=== PATIENT | female | born 1930 | race African-American/Black ===

== ENCOUNTER 2019-03-20 21:59 | Inpatient (IN) | payer OTHER, MEDICAID ==
[~2019-03-20] VITALS: Ht 157.5 cm; Wt 47.9 kg
[~2019-03-20 21:59] MED LIST: ALLO100T MT; ASPI-1393 MT; ATOR-2 MT; CARV3.1242 PO; CLOP75TA33 MT; LOSA100T32 MT
[2019-03-20] MEDS ORDERED: SODIUM CHLORIDE 0.9% 1,000 ML IV ONE (23:13)
[2019-03-20] MEDS ORDERED: LEVETIRACETAM 500MG PREMIX 100 ML IV ONE (23:15)
[2019-03-20 23:33] LABS: BASOPHILS % 1.2 % (0.0-2.0); EOSINOPHILS % 5.4 % (0.0-5.0); HEMATOCRIT. 29.6 % (36.0-48.0); HEMOGLOBIN. 9.4 g/dL (12.0-16.0); LYMPHOCYTES % 14.9 % (20.0-50.0); MEAN CORPUSCULAR HEMOGLOBIN 29.8 pg (28.0-32.0); MEAN CORPUSCULAR VOLUME 93.9 fL (81.0-99.0); MEAN PLATELET VOLUME 11.7 fl (7.4-10.4); MONOCYTES % 10.2 % (2.0-8.0); NEUTROPHILS % 68.3 % (40.0-76.0); PLATELET 164 x1000/uL (130-400); RED BLOOD CELL COUNT 3.15 mill/uL (4.2-5.4); RED CELL DISTRIBUTION WIDTH 18.1 % (11.6-14.6)
[2019-03-20 23:38] LABS: CHLORIDE 118 mEq/L (98-107)
[2019-03-21 01:56] LABS: CLARITY URINE TURBID (CLEAR); COLOR URINE YELLOW (YELLOW); KETONES URINE NEGATIVE (NEGATIVE); LEUKOCYTE ESTERASE URINE 3+ (NEGATIVE); NITRITE URINE NEGATIVE (NEGATIVE); OCCULT BLOOD URINE 3+ (NEGATIVE); PROTEIN URINE 2+ (NEGATIVE); SPECIFIC GRAVITY URINE 1.011 (1.005-1.030); UROBILINOGEN URINE 0.2 E.U./dL (0.2-1.0)
[2019-03-21 09:02] VITALS: BP 149/56
[2019-03-21 11:00] VITALS: BP 149/56
[2019-03-21 12:00] VITALS: BP 143/55
[2019-03-21] MEDS: LEVETIRACETAM 500MG TABLET PO SCH ×2 (13:55→22:47)
[2019-03-21] MEDS: ACETAMINOPHEN 650MG/20.3ML UDC PO PRN (13:55)
[2019-03-21 16:00] VITALS: BP 142/57
[2019-03-21] MEDS: LOSARTAN POTASSIUM 100 MG TABLET PO SCH (17:18)
[2019-03-21] MEDS: CLOPIDOGREL 75MG TABLET PO SCH (17:18)
[2019-03-21] MEDS: ASPIRIN 81MG EC TABLET PO SCH (17:18)
[2019-03-21] MEDS: CEPHALEXIN 250MG CAPSULE PO SCH (18:12)
[2019-03-21 20:00] VITALS: BP 157/68
[2019-03-21] MEDS ORDERED: ATORVASTATIN CALCIUM 40MG TABLET PO SCH (21:00)
[2019-03-21] MEDS: CARVEDILOL 3.125 MG TABLET PO SCH (22:47)
[2019-03-22] VITALS: BP 122/71
[2019-03-22] MEDS: CEPHALEXIN 250MG CAPSULE PO SCH ×3 (00:45→12:12)
[2019-03-22] MEDS: ACETAMINOPHEN 650MG/20.3ML UDC PO PRN ×2 (00:46→07:50)
[2019-03-22 04:00] VITALS: BP 157/65
[2019-03-22 08:00] VITALS: BP 186/89
[2019-03-22] MEDS ORDERED: ALLOPURINOL 100 MG TABLET PO SCH (09:00)
[2019-03-22] MEDS: LEVETIRACETAM 500MG TABLET PO SCH (09:01)
[2019-03-22] MEDS: CLOPIDOGREL 75MG TABLET PO SCH (09:01)
[2019-03-22] MEDS: ASPIRIN 81MG EC TABLET PO SCH (09:02)
[2019-03-22] MEDS: LOSARTAN POTASSIUM 100 MG TABLET PO SCH (09:02)
[2019-03-22] MEDS: CARVEDILOL 3.125 MG TABLET PO SCH (09:02)
[2019-03-22 12:00] VITALS: BP 184/76
[2019-03-22 12:20] VITALS: BP 184/76
== END 2019-03-22 14:40 | disposition home health service (06) | DRG 101 ==
LOC: ER 21:59 → EDBEDREQ 23:16 → OBSVTOIN 03-21 03:07 → INTOOBSV 03-21 03:07 → 5WST 03-21 03:07 → EDBEDREQ 03-21 03:16 → EDBEDREQDT 03-21 03:16 → EDBEDREQTM 03-21 03:16 → ENRESERV 03-21 07:25
PROVIDERS: ADMIT Ophthalmology; ATTEND Ophthalmology
DX: R56.9 Unspecified convulsions (principal); N39.0 Urinary tract infection, site not specified; F03.90 Unspecified dementia, unspecified severity, without behavioral disturbance, psychotic disturbance, mood disturbance, and anxiety; E78.5 Hyperlipidemia, unspecified; I25.10 Atherosclerotic heart disease of native coronary artery without angina pectoris; N18.9 Chronic kidney disease, unspecified; M10.9 Gout, unspecified; I12.9 Hypertensive chronic kidney disease with stage 1 through stage 4 chronic kidney disease, or unspecified chronic kidney disease; E11.22 Type 2 diabetes mellitus with diabetic chronic kidney disease; I25.2 Old myocardial infarction; Z87.440 Personal history of urinary (tract) infections; Z86.73 Personal history of transient ischemic attack (TIA), and cerebral infarction without residual deficits; Z79.02 Long term (current) use of antithrombotics/antiplatelets; Z79.82 Long term (current) use of aspirin; Z79.899 Other long term (current) drug therapy
CPT/HCPCS: 36415; 71045; 81003; 83605; 84484; 87077; 87186; 93005; 96365; 99285; A6261; J1953; J7030

== ENCOUNTER 2019-12-20 09:51 | Inpatient (IN) | payer OTHER, MEDICAID ==
[~2019-12-20] VITALS: Ht 154.9 cm; Wt 50.8 kg
[~2019-12-20 09:51] MED LIST changes: -ASPI-1393 MT; +ASPI-1497 MT
[2019-12-20] MEDS ORDERED: SODIUM CHLORIDE 0.9% 1,000 ML IV ONE (10:04)
[2019-12-20] MEDS ORDERED: LORAZEPAM 2MG/ML CPJ IV ONE (10:15)
[2019-12-20] MEDS ORDERED: LEVETIRACETAM 1000MG/100ML 100 ML IV ONE (10:15)
[2019-12-20] MEDS ORDERED: LORAZEPAM 2MG/ML CPJ ONE (10:21)
[2019-12-20 10:35] LABS: BASOPHILS % 0.6 % (0.0-2.0); EOSINOPHILS % 6.7 % (0.0-5.0); HEMATOCRIT. 31.7 % (36.0-48.0); HEMOGLOBIN. 10.3 g/dL (12.0-16.0); MEAN CORPUSCULAR HEMOGLOBIN 30.6 pg (28.0-32.0); MEAN PLATELET VOLUME 11.1 fl (7.4-10.4); MONOCYTES % 10.7 % (2.0-8.0); PLATELET 171 x1000/uL (130-400); RED BLOOD CELL COUNT 3.37 mill/uL (4.2-5.4); RED CELL DISTRIBUTION WIDTH 18.4 % (11.6-14.6)
[2019-12-20 10:39] LABS: CHLORIDE 116 mEq/L (98-107)
[2019-12-20 10:42] LABS: INR 1.1; PROTHROMBIN TIME 11.4 sec (9.6-11.0)
[2019-12-20 11:54] LABS: CLARITY URINE TURBID (CLEAR); COLOR URINE RED (YELLOW); KETONES URINE NEGATIVE (NEGATIVE); LEUKOCYTE ESTERASE URINE 3+ (NEGATIVE); NITRITE URINE NEGATIVE (NEGATIVE); OCCULT BLOOD URINE 3+ (NEGATIVE); PROTEIN URINE 3+ (NEGATIVE); SPECIFIC GRAVITY URINE 1.013 (1.005-1.030); UROBILINOGEN URINE 0.2 E.U./dL (0.2-1.0)
[2019-12-20] MEDS ORDERED: DEXTROSE 50% WATER 50ML SYRINGE IV ONE (13:00)
[2019-12-20] MEDS ORDERED: INSULIN REGULAR (HUMULIN R) 300UNITS/3ML IV ONE (13:00)
[2019-12-20] MEDS ORDERED: CEFTRIAXONE 1 G PREMIX 50 ML IV ONE (13:00)
[2019-12-20] MEDS ORDERED: CLONIDINE 0.1MG TABLET PO PRN (18:30)
[2019-12-20] MEDS ORDERED: IPRATROPIUM/ALBUTEROL 0.5-3(2.5)MG/3ML NEB NEB PRN (18:30)
[2019-12-20] MEDS ORDERED: ONDANSETRON HCL 4MG/2ML INJ IV PRN (18:30)
[2019-12-20] MEDS ORDERED: NA PHOS,M-B/NA PHOS,DI-BA ENEMA 118ML PR PRN (18:30)
[2019-12-20] MEDS: FAMOTIDINE 20MG/2ML VIAL IV SCH (18:30)
[2019-12-20] MEDS ORDERED: GUAIFENESIN 200MG/10ML SUGAR FREE UDC PO PRN (18:30)
[2019-12-20] MEDS ORDERED: MAGNESIUM/ALUMINUM HYDROXIDE/SIMETHICONE 30ML UDC PO PRN (18:30)
[2019-12-20] MEDS ORDERED: DEXTROSE 50% WATER 50ML SYRINGE IV PRN (18:30)
[2019-12-20] MEDS ORDERED: DIPHENHYDRAMINE 50MG/ML VIAL IV PRN (18:30)
[2019-12-20] MEDS ORDERED: DOCUSATE SODIUM 100MG CAPSULE PO PRN (18:30)
[2019-12-20] MEDS ORDERED: ACETAMINOPHEN 650MG SUPP PR PRN (18:30)
[2019-12-20] MEDS ORDERED: LEVETIRACETAM 500 MG in SODIUM CHLORIDE 0.9% 100 ML IV SCH (18:30)
[2019-12-20] MEDS ORDERED: LORAZEPAM 0.5MG TABLET PO PRN (18:30)
[2019-12-20] MEDS ORDERED: HYDROCODONE/ACETAMINOPHEN 5/325MG TABLET PO PRN (18:30)
[2019-12-20] MEDS ORDERED: ACETAMINOPHEN 650MG/20.3ML UDC GT PRN (18:30)
[2019-12-20] MEDS ORDERED: MORPHINE SULFATE 2 MG/ML CPJ (NOT FOR IM USE) IV PRN (18:30)
[2019-12-20] MEDS ORDERED: LORAZEPAM 2MG/ML CPJ IV PRN (18:30)
[2019-12-20] MEDS: BLOOD SUGAR DIAGNOSTIC STRIP TEST SCH (18:41)
[2019-12-20] MEDS: DEXT 5%/0.45% NACL 1000ML 1,000 ML IV SCH (19:00)
[2019-12-20] MEDS: LEVETIRACETAM 500MG PREMIX 100 ML IV SCH (21:00)
[2019-12-20 23:37] LABS: CREATINE KINASE MB FRACTION 6.8 ng/mL (0.5-3.6)
[2019-12-21] VITALS: BP 127/95
[2019-12-21] MEDS: PIPERACILLIN/TAZOBACTAM 2.25 G in DEXTROSE 5% WATER 50 ML IV SCH ×6 (01:22→23:48)
[2019-12-21] MEDS: ENOXAPARIN 30MG/0.3ML SYR SUBCUT SCH ×2 (01:23→20:58)
[2019-12-21 02:28] VITALS: BP 127/70
[2019-12-21] MEDS: BLOOD SUGAR DIAGNOSTIC STRIP TEST SCH ×4 (06:00→18:47)
[2019-12-21 08:00] VITALS: BP 120/60
[2019-12-21] MEDS: FAMOTIDINE 20MG/2ML VIAL IV SCH (09:45)
[2019-12-21 10:12] LABS: BASOPHILS % 1.1 % (0.0-2.0); EOSINOPHILS % 3.8 % (0.0-5.0); HEMATOCRIT. 29.1 % (36.0-48.0); HEMOGLOBIN. 9.5 g/dL (12.0-16.0); MEAN CORPUSCULAR HEMOGLOBIN 30.5 pg (28.0-32.0); MEAN CORPUSCULAR VOLUME 93.3 fL (81.0-99.0); MONOCYTES % 11.3 % (2.0-8.0); NEUTROPHILS % 63.8 % (40.0-76.0); PLATELET 157 x1000/uL (130-400); RED BLOOD CELL COUNT 3.11 mill/uL (4.2-5.4); RED CELL DISTRIBUTION WIDTH 17.5 % (11.6-14.6)
[2019-12-21 12:00] VITALS: BP 117/71
[2019-12-21] MEDS: INSULIN LISPRO 100 UNITS/ML SUBCUT SCH (12:00)
[2019-12-21 12:53] LABS: CHLORIDE 116 mEq/L (98-107)
[2019-12-21 13:01] LABS: LDL CHOLESTEROL 51 mg/dL (5-100)
[2019-12-21 13:02] LABS: CREATINE KINASE 431 IU/L (26-192); CREATINE KINASE MB FRACTION 4.9 ng/mL (0.5-3.6)
[2019-12-21 13:04] LABS: HDL CHOLESTEROL 63 mg/dL (40-59); T4 FREE 1.23 ng/dL (0.76-1.46)
[2019-12-21] MEDS: LEVETIRACETAM 500MG PREMIX 100 ML IV SCH ×2 (14:48→21:10)
[2019-12-21 16:00] VITALS: BP 131/59
[2019-12-21 20:00] VITALS: BP 159/75
[2019-12-21] MEDS: DEXT 5%/0.45% NACL 1000ML 1,000 ML IV SCH (21:10)
[2019-12-22] VITALS: BP 174/85
[2019-12-22] MEDS: BLOOD SUGAR DIAGNOSTIC STRIP TEST SCH ×4 (00:04→16:32)
[2019-12-22] MEDS: HYDRALAZINE 20MG/ML VIAL IV PRN ×2 (00:20→15:39)
[2019-12-22 04:00] VITALS: BP 129/66
[2019-12-22] MEDS: PIPERACILLIN/TAZOBACTAM 2.25 G in DEXTROSE 5% WATER 50 ML IV SCH ×4 (04:46→21:36)
[2019-12-22] MEDS: INSULIN LISPRO 100 UNITS/ML SUBCUT SCH ×4 (06:00→16:31)
[2019-12-22 06:52] LABS: BASOPHILS % 0.8 % (0.0-2.0); EOSINOPHILS % 6.6 % (0.0-5.0); HEMATOCRIT. 27.1 % (36.0-48.0); HEMOGLOBIN. 9.2 g/dL (12.0-16.0); MEAN CORPUSCULAR HEMOGLOBIN 31.2 pg (28.0-32.0); MEAN CORPUSCULAR VOLUME 91.9 fL (81.0-99.0); MEAN PLATELET VOLUME 11.2 fl (7.4-10.4); MONOCYTES % 9.6 % (2.0-8.0); PLATELET 151 x1000/uL (130-400); RED BLOOD CELL COUNT 2.95 mill/uL (4.2-5.4); RED CELL DISTRIBUTION WIDTH 17.6 % (11.6-14.6)
[2019-12-22 08:00] VITALS: BP 153/88
[2019-12-22 08:38] LABS: VITAMIN B12 SERUM 376 pg/mL (211-911)
[2019-12-22] MEDS: FAMOTIDINE 20MG/2ML VIAL IV SCH (08:41)
[2019-12-22] MEDS: LEVETIRACETAM 500MG PREMIX 100 ML IV SCH (08:41)
[2019-12-22] MEDS: DEXT 5%/0.45% NACL 1000ML 1,000 ML IV SCH ×2 (11:00→15:53)
[2019-12-22 12:00] VITALS: BP_SYST 145; BP_SYST 185; BP_DIAS 68; BP_DIAS 97
[2019-12-22 15:33] VITALS: BP 177/86
[2019-12-22 20:00] VITALS: BP 118/66
[2019-12-22] MEDS: ENOXAPARIN 30MG/0.3ML SYR SUBCUT SCH (21:35)
[2019-12-22] MEDS: LEVETIRACETAM 250MG TABLET PO SCH (21:38)
[2019-12-23] VITALS (7 sets, daily range): BP systolic 144–159; BP diastolic 61–79
[2019-12-23] MEDS: INSULIN LISPRO 100 UNITS/ML SUBCUT SCH ×3 (06:00→11:45)
[2019-12-23] MEDS: BLOOD SUGAR DIAGNOSTIC STRIP TEST SCH ×3 (06:39→11:45)
[2019-12-23] MEDS: FAMOTIDINE 20MG/2ML VIAL IV SCH (08:04)
[2019-12-23] MEDS: LEVETIRACETAM 250MG TABLET PO SCH (08:07)
[2019-12-23] MEDS ORDERED: NITROFURANTOIN 100MG M/M CAPSULE PO SCH (09:00)
[2019-12-23 09:50] LABS: FERRITIN 495 ng/mL (10-291)
[2019-12-23] MEDS: DEXT 5%/0.45% NACL 1000ML 1,000 ML IV SCH (13:40)
== END 2019-12-23 18:00 | disposition home or self-care (01) | DRG 101 ==
LOC: ER 10:02 → 8WST 15:05 → EDBEDREQ 15:15 → EDBEDREQTM 15:15 → ENRESERV 22:02
PROVIDERS: ADMIT Ophthalmology; ATTEND Ophthalmology
PROC: 4A00X4Z Measurement of Central Nervous Electrical Activity, External Approach (ICD-10-PCS; principal; 2019-12-22)
DX: G40.909 Epilepsy, unspecified, not intractable, without status epilepticus (principal); N39.0 Urinary tract infection, site not specified; E86.0 Dehydration; E87.5 Hyperkalemia; E11.22 Type 2 diabetes mellitus with diabetic chronic kidney disease; I12.9 Hypertensive chronic kidney disease with stage 1 through stage 4 chronic kidney disease, or unspecified chronic kidney disease; N18.9 Chronic kidney disease, unspecified; D64.9 Anemia, unspecified; I25.10 Atherosclerotic heart disease of native coronary artery without angina pectoris; Z74.01 Bed confinement status; Z79.899 Other long term (current) drug therapy; I25.2 Old myocardial infarction; I69.30 Unspecified sequelae of cerebral infarction; Z79.82 Long term (current) use of aspirin; I69.398 Other sequelae of cerebral infarction
CPT/HCPCS: 36415; 70551; 71045; 74176; 80048; 80053; 80061; 81003; 82550; 82553; 82607; 82728; 82962; 83036; 83540; 83550; 84132; 84439; 84443; 84484; 85025; 87077; 87106; 87186; 92610; 93005; 93306; 93970; 95816; 96374; 97162; 99291; J0360; J0696; J1650; J1815; J1953; J2060; J2270; J2543; J3490; J7030; J7060